=== PATIENT | male | born 1980 | race Caucasian/White ===

== ENCOUNTER → 2022-07-21 12:59 | Outpatient (BNVA) | payer SELFPAY | PROVIDERS: Visit Provider Nurse Practitioner Family | DX: R50.9 Fever, unspecified (principal); L03.90 Cellulitis, unspecified; T14.8XXA Other injury of unspecified body region, initial encounter; W57.XXXA Bitten or stung by nonvenomous insect and other nonvenomous arthropods, initial encounter | CPT/HCPCS: 80053; 86618; 86666; 86757 ==